=== PATIENT | female | born 1995 | race Caucasian/White ===

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

== ENCOUNTER 2017-02-02 11:44 | Emergency (ER) | payer OTHER ==
[~2017-02-02] VITALS: Ht 170.2 cm; Wt 61.2 kg
[2017-02-02 11:51] VITALS: BP 150/80
--- NOTE | 2017-02-02 15:08 | NUR ---
CALLED TO A BED,NO ANSWER
--- NOTE | 2017-02-02 15:08 | NUR ---
PATIENT LEFT WITHOUT BEING SEEN BY DR. ADAMS. NO FURTHER CARE PROVIDED FOR PATIENT.
== END 2017-02-02 15:08 | disposition left against medical advice (07) ==
LOC: MED 11:44
DX: M79.672 Pain in left foot (principal); Z53.21 Procedure and treatment not carried out due to patient leaving prior to being seen by health care provider

== ENCOUNTER 2019-02-21 09:17 | Emergency (ER) | payer OTHER ==
[~2019-02-21] VITALS: Ht 167.6 cm; Wt 63.5 kg
[2019-02-21 09:25] VITALS: BP 102/64
--- NOTE | 2019-02-21 09:43 | NUR ---
Patient ambulated to bed 3. RN evaluating patient at bedside.
--- NOTE | 2019-02-21 09:50 | NUR ---
C/O N/V/D AND NO APPETITE X3 DAYS. 1 EPISODE OF VOMITING & DIARRHEA THIS MORNING. DENIES PAIN/FEVER/COUGH/CP/SOB/DYSURIA. ABDOMEN SOFT,FLAT NON TENDER, LBM TODAY +DIARRHEA. BED IN LOW POSITON, SIDE RAIL UP X1
--- NOTE | 2019-02-21 10:15 | NUR ---
ERDM AT BEDSIDE
[2019-02-21] MEDS ORDERED: DICYCLOMINE HCL LIQUID 10 MG/5 ML UDC PO ONE (10:40)
[2019-02-21] MEDS: ONDANSETRON 4 MG ODT PO ONE ×2 (10:43→10:44)
--- NOTE | 2019-02-21 10:45 | NUR ---
PT REFUSED ZOFRAN ODT, STATES IT "MAKES HER NAUSEOUS". DR. FERNANDEZ AWARE AND ADVISED TO GIVE PT CUP OF WATER TO GET URINE SAMPLE.
--- NOTE | 2019-02-21 10:49 | NUR ---
PROVIDED PT WATER AND CUP FOR URINE SAMPLE
--- NOTE | 2019-02-21 11:17 | NUR ---
ERMD MADE AWARE PT HAS NOT URINATED YET, DESPITE DRINKING 2 8 OZ GLASSES OF WATER 30 MIN AGO.
--- NOTE | 2019-02-21 12:00 | NUR ---
PER DR. FERNANDEZ, WILL D/C WITHOUT URINE.
[2019-02-21 12:14] VITALS: BP 111/70
--- NOTE | 2019-02-21 12:15 | NUR ---
Patient discharged with v/s stable. Written and verbal after care instructions given and explained. Patient alert, oriented and verbalized understanding of instructions. Ambulatory with steady gait. All questions addressed prior to discharge. ID band removed. Patient advised to follow up with PMD. Rx of BENTYL given. Patient educated on indication of medication including possible reaction and side effects. Opportunity to ask questions provided and answered.
== END 2019-02-21 12:15 | disposition home or self-care (01) ==
LOC: MED 09:17
DX: B34.9 Viral infection, unspecified (principal); Z88.1 Allergy status to other antibiotic agents
CPT/HCPCS: 81002; 99283; Q0162